=== PATIENT | female | born 2005 | race Caucasian/White ===

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

== ENCOUNTER 2023-07-22 11:27 | Emergency (ER) | payer BC, SELFPAY ==
--- NOTE | ~2023-07-22 | US_ITS ---
EXAMINATION: US right upper quadrant DATE: 07/22/2023 16:41 INDICATION: Abdominal pain TECHNIQUE: Multiple grayscale and Doppler ultrasound images of the abdomen were obtained. COMPARISON: None FINDINGS: The pancreatic head and body are normal in appearance. The pancreatic tail is not visualized. Visual ized abdominal aorta is normal measuring 1.8 cm proximally tapering to 1.4 cm in the mid aorta. The v isualized proximal inferior vena cava is normal. The gallbladder is normal in appearance. There is n o cholelithiasis. The common bile duct measures 2 mm, which is normal. Sonographic Min sign was re ported as negative by the environmental engineering professor. IMPRESSION: 1. Normal right upper quadrant ultrasound. Reviewed, dictated and finalized at location A. OTAPE OPERATOR
[2023-07-22 12:05] VITALS: BP 126/92; PULSE 93; RESP 18; TEMP 36.1; O2SAT 99
[2023-07-22 16:27] VITALS: BP 118/72; PULSE 78; RESP 16; TEMP 36.7; O2SAT 100
[2023-07-22] MEDS: MORPHINE SULFATE (*CRX) 2 MG/ML INJ IV PUSH (16:32)
[2023-07-22] MEDS: ONDANSETRON INJ 4 MG/2 ML VIAL IV PUSH (16:32)
[2023-07-22 16:34] LABS: Basophils Absolute Auto 0.1 K/mm3 (0.0-0.1); Basophils Percent Auto 0.9 % (0.2-1.2); Eosinophils Absolute Auto 0.1 K/mm3 (0-0.3); Hematocrit 44.5 % (37.0-47.0); Hemoglobin 13.6 g/dL (12.0-15.0); Immature Granulocyte Absolute 0.03 K/mm3 (0.00-0.031); Immature Granulocyte Percent A 0.4 % (0-0.5); Lymphocytes Absolute Auto 2.19 K/mm3 (0.9-3.2); Lymphocytes Percent Auto 31.9 % (18.3-44.2); Mean Corpuscular HGB Conc 30.6 g/dl (32-36); Mean Corpuscular Volume 72.1 fl (80-100); Mean Platelet Volume 10.2 fl (7.4-10.4); Monocytes Absolute Auto 0.5 K/mm3 (0.1-0.6); Monocytes Percent Auto 7.9 % (2.6-8.5); Neutrophils Absolute Auto 3.9 K/mm3 (1.3-6.7); Neutrophils Percent Auto 56.9 % (45.5-73.1); Platelet Count Result 212 k/mm3 (150-375); Red Blood Count 6.17 M/mm3 (4.2-5.4); Red Cell Distribution Width 16.8 % (11.5-14.5); White Blood Count 6.9 K/mm3 (4.5-10.0)
[2023-07-22 16:44] LABS: Alanine Aminotransferase 18 U/L (6-35); Albumin Level 4.7 g/dL (3.5-5.1); Alkaline Phosphatase 70 U/L (38-126); Anion Gap 6 mmol/L (8-16); Aspartate Amino Transferase 26 U/L (14-36); Bilirubin,Total 0.9 mg/dL (0.2-1.3); Blood Urea Nitrogen 9 mg/dL (7-17); Calcium 9.8 mg/dL (8.4-10.2); Carbon Dioxide 26 mmol/L (22-30); Chloride 104 mmol/L (98-107); Estimated CRCL calculation 107 ml/min; Estimated Glomerular Filt Rate > 60; Glucose 95 mg/dL (65-110); Lipase 54 U/L (23-300); Sodium 136 mmol/L (137-145)
[2023-07-22 17:30] VITALS: BP 118/70; PULSE 78; RESP 16; TEMP 36.7; O2SAT 99
[2023-07-22 18:15] VITALS: BP 120/68; PULSE 80; RESP 16; TEMP 36.6; O2SAT 100
--- NOTE | 2023-07-22 18:15 | ED.ABDPAIN ---
HPI - Abdominal Pain General Chief Complaint: Abdominal Pain Stated Complaint: abd pain Time Seen by Provider: 07/22/23 15:53 History of Present Illness HPI narrative: Patient is a 18-year-old female who presents ER with abdominal pain. Right upper quadrant. Associated nausea vomiting. She has had some diarrhea. This has been intermittent for last couple of months. It is associated with eating. No fevers or chills or sweats. Related Data Allergies Allergy/AdvReac Type Severity Reaction Status Date / Time No Known Allergies Allergy Verified 12/27/22 15:17 Review of Systems Review of Systems: All systems reviewed & are unremarkable except as noted in HPI and below Constitutional: Constitutional: Reports no additional constitutional complaints ENT: Reports system reviewed and no additional complaints, except as documented Cardiovascular: Cardiovascular: Reports no additional cardiovascular complaints Respiratory: Respiratory: Reports no additional respiratory complaints Gastrointestinal: Gastrointestinal: Reports abdominal pain, Reports diarrhea, Reports nausea and Reports vomiting Genitourinary: Genitourinary: Reports no additional female genitourinary complaints Musculoskeletal: Musculoskeletal: Reports no additional musculoskeletal complaints PMFSH Past Medical History Medical History (Updated 07/22/23 @ 19:05 by Bob Carbajal MD) No pertinent past medical history Surgical History Surgical History (Updated 07/22/23 @ 18:17 by Bob Carbajal MD) No history of previous surgery Family History Family History Grandparent Cancer Social History Social History Smoking status: Never smoker Substance use: current Last use: MONTH AGO--IN JANUARY Gender identity (if verbalized by the patient): Female Spiritual care concerns: No Exam Narrative: GENERAL: Well-appearing, well-nourished, and in no acute distress. HEAD: Normocephalic, atraumatic. ENT: Mucous membranes moist. NECK: Supple. CHEST: Clear to auscultation. No respiratory distress. HEART: Regular rate and rhythm. Normal peripheral pulses. ABDOMEN: Soft, mild ttp RUQ, nondistended. EXTREMITIES: Normal range of motion. No edema. SKIN: Warm, dry, no rash. NEURO: Alert and oriented x3. PSYCH: Normal mood and affect. Course Course Emergency Course: -Course: Epigastric pain with nausea upon arrival. Improved with medication. -Co-morbidities complicating care: obesity -Social determinants of health: none -External Chart Review: none -Hx from independent Sources: patient -Independent interpretation of studies: normal labs and ultrasound of right upper quadrant -Interventions: morphine 4 mg, Zofran 4 mg -Shared decision making / Disposition: discharge home, follow-up with PCP. May require GI follow-up if she has recurrent issues. Vital Signs Vital signs: Vital Signs Temperature 96.9 F L 07/22/23 12:05 Pulse Rate 93 07/22/23 12:05 Respiratory Rate 18 07/22/23 12:05 Blood Pressure 126/92 H 07/22/23 12:05 Pulse Oximetry 99 07/22/23 12:05 Oxygen Delivery Room Air 07/22/23 12:05 Temperature 97.8 F 07/22/23 18:47 Pulse Rate 74 07/22/23 18:47 Respiratory Rate 16 07/22/23 18:47 Blood Pressure 116/74 07/22/23 18:47 Pulse Oximetry 98 07/22/23 18:47 Oxygen Delivery Room Air 07/22/23 12:05 MDM - Abdominal Pain Lab Data 07/22/23 16:28 07/22/23 16:28 Labs: Lab Results 07/22/23 Range/Units 16:28 WBC 6.9 (4.5-10.0) K/mm3 RBC 6.17 H (4.2-5.4) M/mm3 Hgb 13.6 D (12.0-15.0) g/dL Hct 44.5 (37.0-47.0) % MCV 72.1 L (80-100) fl MCH 22.0 L (26-34) pg MCHC 30.6 L (32-36) g/dl RDW 16.8 H (11.5-14.5) % Plt Count 212 (150-375) k/mm3 MPV 10.2 (7.4-10.4) fl Immature Gran % (Auto) 0.4 (0-0.5
[2023-07-22 18:47] VITALS: BP 116/74; PULSE 74; RESP 16; TEMP 36.6; O2SAT 98
== END 2023-07-22 19:10 | disposition home or self-care (01) ==
PROVIDERS: Emergency Provider Emergency Medicine; PCP Family Medicine
DX: R10.13 Epigastric pain (principal)
CPT/HCPCS: 36415; 76705; 80053; 83690; 85025; 96374; 96375; 99284; J2270; J2405

== ENCOUNTER 2024-11-30 01:21 | Emergency (ER) | payer SELFPAY ==
--- NOTE | ~2024-11-30 | XR_ITS ---
Clinical Indication: Epigastric pain PA and lateral views of the chest: Comparison: None Findings: The lungs are clear, without evidence of focal consolidation or pleural effusion. Cardiome diastinal silhouette is within normal limits. Bones and soft tissues are unremarkable. Impression: Normal chest. Reviewed, dictated and finalized at location . Impression: Normal chest.
[2024-11-30 01:22] VITALS: BP 119/77; PULSE 109; RESP 14; TEMP 36.3; O2SAT 100
--- NOTE | 2024-11-30 01:32 | ECG_ITS ---
Test Date: 2024-11-30 01:44:33 Measurements Intervals [place] Rate: 102 P: 48 VA: 159 QRS: 27 QRSD: 90 T: 24 QT: 333 QTc: 434 Interpretive Statements SINUS TACHYCARDIA POSSIBLE LEFT ATRIAL ENLARGEMENT INCOMPLETE RIGHT BUNDLE BRANCH BLOCK DELAYED PRECORDIAL R/S TRANSITION BORDERLINE ECG No previous ECG available for comparison Electronically Signed On 11-30-2024 06:09:51 CDT by Jamar Jon D.O.
[2024-11-30 02:04] LABS: BEDSIDEPREGUCG Negative (Negative)
--- NOTE | 2024-11-30 02:22 | ED_ITS ---
HPI - General Adult General Chief complaint: Chest Pain Stated complaint: epigastric pain Time Seen by Provider: 11/30/24 02:10 History of Present Illness HPI narrative: 19-year-old female presenting to the emergency department for evaluation for nausea vomiting and diarrhea. Patient states this is a chronic issue for her. Patient reports he has a history of IBS but does not follow-up with GI. Patient states that she does smoke marijuana daily and does drink alcohol almost daily. Related Data Allergies Allergy/AdvReac Type Severity Reaction Status Date / Time No Known Allergies Allergy Verified 11/30/24 01:22 Review of Systems 2 Review of Systems: All systems reviewed & are unremarkable except as noted in HPI and below PMFSH Past Medical History Medical History (Updated 11/30/24 @ 03:35 by Manjeet Payan MD) No pertinent past medical history Surgical History Surgical History (Updated 07/22/23 @ 18:17 by Bob Carbajal MD) No history of previous surgery Family History Family History Grandparent Cancer Social History Social History Smoking status: Never smoker Substance use: current Last use: MONTH AGO--IN JANUARY Gender identity (if verbalized by the patient): Female Spiritual care concerns: No Exam 2 Narrative: APPEARANCE: Well appearing, no pain, no distress, well-nourished. HEAD: normocephalic, atraumatic. EYES: PERRLA/EOMI, conjunctivae clear. NOSE: Normal no drainage EARS:TMS clear with good light reflex. THROAT: Pharynx clear, no exudate. NECK: Supple. No adenopathy, no masses. RESPIRATORY: Airway patent, respirations nonlabored. Clear to auscultation bilaterally, no rales, rhonchi, wheezing. CARDIOVASCULAR: Regular rate and rhythm without murmurs rubs or gallops. ABDOMINAL: Epigastric tenderness to palpation MUSCULOSKELETAL: Moves all extremities. Strength/ROM intact, No edema, No calf tenderness. NEURO: Alert. Cranial nerves II through XII intact. Good gait. Good coordination SKIN: Warm, dry. Normal Color Course Vital Signs Vital signs: Vital Signs Temperature 97.4 F L 11/30/24 01:22 Pulse Rate 109 H 11/30/24 01:22 Respiratory Rate 14 11/30/24 01:22 Blood Pressure 119/77 11/30/24 01:22 Pulse Oximetry 100 11/30/24 01:22 Oxygen Delivery Room Air 11/30/24 01:22 Temperature 97.4 F L 11/30/24 01:22 Pulse Rate 75 11/30/24 04:01 Respiratory Rate 20 11/30/24 04:01 Blood Pressure 108/79 11/30/24 04:01 Pulse Oximetry 97 11/30/24 04:01 Oxygen Delivery Room Air 11/30/24 01:22 Medical Decision Making MDM Narrative Medical decision making narrative: 19-year-old female presents emergency department for evaluation for cyclic nausea and vomiting. Patient does admit to daily THC use. Patient describes nausea vomiting and diarrhea that is daily. Patient has not had follow-up with GI. Patient's symptoms were resolved with the Protonix IV, IV famotidine and p.o. GI cocktail. Patient is currently afebrile with no leukocytosis hemoglobin 11.3. Patient has no acute abnormalities on her CMP other than a mildly elevated AST of 43 and a low alk-phos, patient has a normal lipase. Patient's troponin was not elevated. No concern for ACS and patient's symptoms are consistent with gastritis. Feel the underlying issue for gastritis may be alcohol use and cannabinoid hyperemesis syndrome. Patient was educated on refraining from both these and starting on omeprazole. Patient will also be provided follow-up with GI. All questions concerns were addressed patient was comfortable plan for discharge and close follow-up. Differential Diagnosis Differential Diagnosis: Colitis, diverticulitis, gastritis, esophagitis, could have a hyperemesis syndrome, pancreatitis Vital Signs Vital Signs: Vital Signs Temperature 97.4 F L 11/30/24 01:22 Pulse Rate 109 H 11/30/24 01:22 Respiratory Rate 14 11/30/24 01:22 Blood Pressure 119/77 11/30/24 01:22 Pulse Oximetry 100 11/30/24 01:22 Oxygen Delivery Room Air 11/30/24 01:22 Temperature 97.4 F L 11/30/24 01:22 Pulse Rate 75 11/30/24 04:01 Respiratory Rate 20 11/30/24 04:01 Blood Pressure 108/79 11/30/24 04:01 Pulse Oximetry 97 11/30/24 04:01 Oxygen Delivery Room Air 11/30/24 01:22 Lab Data Lab results reviewed: Yes I reviewed the patient's lab results. 11/30/24 02:49 11/30/24 02:02 Labs: Lab Results 11/30/24 11/30/24 Range/Units 02:02 02:49 WBC 6.2 (4.5-10.0) K/mm3 RBC 5.05 (4.2-5.4) M/mm3 Hgb 11.3 L (12.0-15.0) g/dL Hct 35.7 L (37.0-47.0) % MCV 70.7 L (80-100) fl MCH 22.4 L (26-34) pg MCHC 31.7 L (32-36) g/dl RDW 14.7 H (11.5-14.5) % Plt Count 221 (150-375) k/mm3 MPV 11.0 H (7.4-10.4) fl Immature Gran % (Auto) 0.5 (0-0.5) % Neut % (Auto) 42.4 L (45.5-73.1) % Lymph % (Auto) 45.4 H (18.3-44.2) % [place] % (Auto) 8.7 H (2.6-8.5) % Eos % (Auto) 2.2 (0-4.4) % Baso % (Auto) 0.8 (0.2-1.2) % Lymph # (Auto) 2.83 (0.9-3.2) K/mm3 [place] # (Auto) 0.5 (0.1-0.6) K/mm3 Eos # (Auto) 0.1 (0-0.3) K/mm3 Baso # (Auto) 0.1 (0.0-0.1) K/mm3 Abs Immat Gran (auto) 0.03 (0.00-0.031) K/mm3 Absolute Neuts (auto) 2.7 (1.3-6.7) K/mm3 Absolute Nucleated RBC 0.000 (0.0-0.012) K/mm3 Band Neutrophils % 0 (0-6) % Nucleated RBC % 0.0 (0.0-0.2) % Platelet Estimate Adequate (Adequate) Hypochromasia 1+ Anisocytosis 1+ Schistocytes None seen PT Cancelled INR Cancelled APTT Cancelled Sodium 140 (137-145) mmol/L Potassium 4.3 (3.4-5.0) mmol/L Chloride 106 (98-107) mmol/L Carbon Dioxide 23 (22-30) mmol/L Anion Gap 11 (4-12) mmol/L BUN 9 (7-17) mg/dL Creatinine 0.84 (0.7-1.0) mg/dL Estim Creat Clear Calc 90 ml/min Estimated GFR > 60 (59 - ) Glucose 101 (65-110) mg/dL Calcium 9.1 (8.4-10.2) mg/dL Total Bilirubin 0.6 (0.2-1.3) mg/dL AST 43 H (14-36) U/L ALT 25 (6-35) U/L Alkaline Phosphatase 35 L (38-126) U/L Troponin I < 0.012 (0.000-0.034) ng/mL Total Protein 7.9 (6.3-8.2) g/dL Albumin 4.4 (3.5-5.1) g/dL Lipase 106 (23-300) U/L POC Urine HCG, Qual Negative (Negative) Imaging Data Radiologist's impression: Impressions Chest X-Ray 11/30/24 05:26 Impression: Normal chest. Discharge Plan Discharge Clinical Impression: Cannabinoid hyperemesis syndrome, Gastritis Patient Disposition: Home Condition: Stable Instructions: Antibiotic Form, Diet for Stomach Ulcers and Gastritis (ED) Additional Instructions: Avoid alcohol, avoid NSAIDs and follow a bland diet. Take omeprazole as directed for the next 14 days. Have close follow-up with GI. I also strongly recommend that you continue to educate yourself on cannabinoid hyperemesis syndrome and refrain from THC use for at least 1 month to see if this helps with your symptoms. Patient Language: Liberian Prescriptions: New omeprazole 20 mg capsule,delayed release(DR/EC) 20 mg PO DAILY 14 Days Qty: 14 0RF ondansetron 4 mg tablet,disintegrating 4 mg PO Q8H PRN (Reason: nausea and vomiting) Qty: 14 0RF No Action ondansetron 4 mg tablet,disintegrating 4 mg PO Q6H PRN (Reason: nausea and vomiting) Qty: 10 0RF Follow-up/Referrals: PHYSICIAN,SPECIAL MACHINE OPERATOR [Primary Care Provider] - Julio Reynoso MD [Physician] -
[2024-11-30 02:25] LABS: Alanine Aminotransferase 25 U/L (6-35); Albumin Level 4.4 g/dL (3.5-5.1); Alkaline Phosphatase 35 U/L (38-126); Anion Gap 11 mmol/L (4-12); Aspartate Amino Transferase 43 U/L (14-36); Bilirubin,Total 0.6 mg/dL (0.2-1.3); Blood Urea Nitrogen 9 mg/dL (7-17); Calcium 9.1 mg/dL (8.4-10.2); Carbon Dioxide 23 mmol/L (22-30); Chloride 106 mmol/L (98-107); Estimated CRCL calculation 90 ml/min; Estimated Glomerular Filt Rate > 60; Glucose 101 mg/dL (65-110); Lipase 106 U/L (23-300); Potassium 4.3 mmol/L (3.4-5.0); Sodium 140 mmol/L (137-145); Total Protein 7.9 g/dL (6.3-8.2)
[2024-11-30 02:30] LABS: Troponin I < 0.012 ng/mL (0.000-0.034)
[2024-11-30] MEDS: BELLADONNA ALK/PHENOB ELIX 10 ML, MAG HYDROX/ALUMINUM HYD/SIMETH 30 ML, LIDOCAINE 2% VI... PO (02:51)
[2024-11-30] MEDS: PANTOPRAZOLE SODIUM IV 40 MG VIAL IV PUSH (02:53)
[2024-11-30] MEDS: FAMOTIDINE 20 MG/2 ML VIAL IV PUSH (02:54)
[2024-11-30] MEDS: LACTATED RINGERS 1,000 ML 999 ML IV CONT (02:58)
[2024-11-30 03:05] LABS: Basophils Absolute Auto 0.1 K/mm3 (0.0-0.1); Basophils Percent Auto 0.8 % (0.2-1.2); Eosinophils Absolute Auto 0.1 K/mm3 (0-0.3); Eosinophils Percent Auto 2.2 % (0-4.4); Hematocrit 35.7 % (37.0-47.0); Hemoglobin 11.3 g/dL (12.0-15.0); Immature Granulocyte Absolute 0.03 K/mm3 (0.00-0.031); Immature Granulocyte Percent A 0.5 % (0-0.5); Lymphocytes Absolute Auto 2.83 K/mm3 (0.9-3.2); Lymphocytes Percent Auto 45.4 % (18.3-44.2); Mean Corpuscular HGB Conc 31.7 g/dl (32-36); Mean Corpuscular Hemoglobin 22.4 pg (26-34); Mean Corpuscular Volume 70.7 fl (80-100); Monocytes Absolute Auto 0.5 K/mm3 (0.1-0.6); Monocytes Percent Auto 8.7 % (2.6-8.5); Neutrophils Absolute Auto 2.7 K/mm3 (1.3-6.7); Neutrophils Percent Auto 42.4 % (45.5-73.1); Platelet Count Result 221 k/mm3 (150-375); Red Blood Count 5.05 M/mm3 (4.2-5.4); Red Cell Distribution Width 14.7 % (11.5-14.5); White Blood Count 6.2 K/mm3 (4.5-10.0)
[2024-11-30] MEDS: HALOPERIDOL LACTATE 5 MG/ML VIAL IV PUSH (03:18)
[2024-11-30 03:34] LABS: Band Neutrophils Percent 0 % (0-6); Platelet Estimate Adequate (Adequate)
[2024-11-30 03:35] LABS: Anisocytosis 1+; Hypochromasia 1+; Schistocytes None Seen
[2024-11-30 04:01] VITALS: BP 108/79; PULSE 75; RESP 20; O2SAT 97
== END 2024-11-30 04:01 | disposition home or self-care (01) ==
PROVIDERS: Emergency Provider Emergency Medicine
DX: R11.2 Nausea with vomiting, unspecified (principal); F12.90 Cannabis use, unspecified, uncomplicated; I45.10 Unspecified right bundle-branch block; R94.31 Abnormal electrocardiogram [ECG] [EKG]; R00.0 Tachycardia, unspecified
CPT/HCPCS: 36415; 71046; 80053; 81025; 83690; 84484; 85025; 93005; 96361; 96374; 96375; 99284; A9270; J1630; J2470; J7120

== ENCOUNTER 2024-12-18 18:21 | Emergency (ER) | payer SELFPAY ==
--- NOTE | 2024-12-18 18:23 | ED_ITS ---
HPI - Skin/Abscess/Foreign Bdy General Chief complaint: Skin/Abscess/Foreign Body Stated complaint: Bug Bite Left Thigh Time Seen by Provider: 12/18/24 18:29 Source: patient, RN notes reviewed and old records reviewed Mode of arrival: ambulatory Limitations: no limitations History of Present Illness HPI narrative: 19-year-old female presents to the [facility] with concerns of redness, discomfort to the left lateral upper thigh. States approximately 1 cm was either bit or stung by something. Apply hydrocortisone cream 1 time. Related Data Allergies Allergy/AdvReac Type Severity Reaction Status Date / Time No Known Allergies Allergy Verified 12/18/24 18:24 Review of Systems 2 Review of Systems: All systems reviewed & are unremarkable except as noted in HPI and below Constitutional: Constitutional: Reports no additional constitutional complaints ENT: Reports system reviewed and no additional complaints, except as documented Cardiovascular: Cardiovascular: Reports no additional cardiovascular complaints, Denies chest pain and Denies dyspnea Respiratory: Respiratory: Reports no additional respiratory complaints, Denies chest congestion, Denies cough and Denies dyspnea Musculoskeletal: Musculoskeletal: Reports no additional musculoskeletal complaints Integumentary/Breasts: Skin/Breast: Reports as per HPI PMFSH Past Medical History Medical History No pertinent past medical history Surgical History Surgical History No history of previous surgery Family History Family History Grandparent Cancer Social History Social History Smoking status: Never smoker Substance use: current Last use: MONTH AGO--IN JANUARY Gender identity (if verbalized by the patient): Female Spiritual care concerns: No Comments At the time of my signature, I reviewed and agree with the nursing past medical, surgical, social, and family history. There is no relevant family history pertinent to the patient complaint. Exam 2 Const: General: cooperative, healthy appearing, comfortable, no acute distress, well developed, alert and well nourished Nutritional Appearance: w ell nourished Orientation/consciousness: patient oriented x3 Limitations: no limitations HENMT: Head: normal to inspection Mouth: Yes Normal oral and palatal mucosa present, Yes lip normal, Yes tongue normal and Yes moist mucous membranes Eyes: General: appearance normal, both eyes and all related structures A lignment and Position: alignment normal Neck: Neck: normal visual inspection, full ROM, no lymphadenopathy and no meningeal signs Chest: Chest palpation & inspection: normal inspection of the chest Resp: Effort & Inspection: normal respiratory effort and able to speak in complete sentences Cardio: Rate: regular rate Skin: General skin exam: normal color and no rashes or lesions noted Full body images: 1. 7 x 7 cm pain, raised area. Neuro: General: patient oriented x3, gait normal, moves all extremities and no meningeal signs Cognition (Neuro): normal cognition Speech: normal speech Gait exam (Neuro): Normal gait present Extrem: General: normal to inspection, full ROM, capillary refill normal and normal gait Left lower extremity: full ROM and no joint enlargement Psych: Appearance: grossly normal and well kempt Mental Status: mental status grossly normal Speech and movement: Normal speech and movement present and Clear speech present Affect: normal affect Attitude: cooperative Course Course Level of Care: Express Care Visit Vital Signs Vital signs: Vital Signs Temperature 97.5 F L 12/18/24 18:28 Pulse Rate 98 12/18/24 18:28 Respiratory Rate 98 H 12/18/24 18:28 Blood Pressure 126/72 12/18/24 18:28 Pulse Oximetry 98 12/18/24 18:28 Oxygen Delivery Room Air 12/18/24 18:28 Temperature 97.5 F L 12/18/24 18:28 Pulse Rate 98 12/18/24 18:28 Respiratory Rate 98 H 12/18/24 18:28 Blood Pressure 126/72 12/18/24 18:28 Pulse Oximetry 98 12/18/24 18:28 Oxygen Delivery Room Air 12/18/24 18:28 Reviewed MDM - Skin/Abscess/Foreign Bdy MDM Narrative Medical decision making narrative: Patient sitting in exam room. Patient is nontoxic, vitals stable. Patient presents with a circular pink, raised area after being bit by an insect. Patient with most likely a localized reaction to the insect bite. Patient appropriate for outpatient treatment with [id number] products and prescribe steroid cream Discharge instructions reviewed with patient, as well as provided in writing per nursing staff. The instructions also include specific and strict return/GO TO THE ER as well as f/u information. All questions have been answered, and the patient deny any further questions with discharge and discharge plan. Some parts of this dictation were generated by voice recognition software and may contain typographical and/or grammatical inaccuracies. Differential Diagnosis Differential diagnosis: Likely abscess of skin or subcutaneous tissue, urticaria, cellulitis, eczema, insect bites and contact dermatitis Critical Care Time Critical Care Time Critical Care Time: No Discharge Plan Discharge Clinical Impression: Insect bite of left thigh with local reaction Patient Disposition: Home Condition: Stable Instructions: Insect Bite or Sting (ED) Additional Instructions: The most important part of your care is follow up with Primary care provider. Take Benadryl 25mg every 8 hours for itching Take Zyrtec every day Take Pepcid 20mg daily for 7 days Applied steroid cream 3 times a day starting today. Avoid hot showers, Take cool showers. Hot showers will make rashes worse Apply cool compresses every 2-3 hours for 15 minutes Go to the ER for new or worsening symptoms such as shortness of breath. Patient Language: Indian Prescriptions: New triamcinolone acetonide 0.1 % cream 1 applic topical TID Qty: 30 0RF No Action Nexplanon 68 mg implant 1 implant subdermal ONCE Qty: 1 0RF Follow-up/Referrals: UNKNOWN,DOCTOR [Non-Staff] - Time of Disposition: 18:35
[2024-12-18 18:28] VITALS: BP 126/72; PULSE 98; RESP 98; TEMP 36.4; O2SAT 98
== END 2024-12-18 18:38 | disposition home or self-care (01) ==
PROVIDERS: Emergency Provider Nurse Practitioner
DX: S70.362A Insect bite (nonvenomous), left thigh, initial encounter (principal); W57.XXXA Bitten or stung by nonvenomous insect and other nonvenomous arthropods, initial encounter
CPT/HCPCS: 99213; G0463

== ENCOUNTER 2024-12-24 11:02 | Emergency (ER) | payer SELFPAY ==
--- NOTE | ~2024-12-24 | XR_ITS ---
EXAM/PROCEDURE: XR abdomen/kub 1V - 12/24/2024 11:35 CDT HISTORY: 19 years old Female with generalized abdomen pain COMPARISON: None available. TECHNIQUE: AP view(s) of the abdomen. FINDINGS: The bowel gas pattern is normal. There is no evidence for obstruction. No free intraperitoneal air is identified on this supine radiograph. The visualized soft tissue shadows are unremarkable. No gross bony abnormalities are seen. Visualized portions of lung bases are clear. IMPRESSION: No acute process. Reviewed, dictated and finalized at location A. IMPRESSION: No acute process.
--- NOTE | 2024-12-24 11:04 | ED_ITS ---
HPI - Abdominal Pain General Chief Complaint: Abdominal Pain Stated Complaint: abdomen pain Time Seen by Provider: 12/24/24 11:03 Source: patient Mode of arrival: ambulatory Limitations: no limitations History of Present Illness HPI narrative: Glory is a 19-year-old female patient presenting to the clinic today with complaints of mid and lower abdominal pain x1 day. She reports symptoms started yesterday-pain was 10/10 at that time. States pain is sharp, stabbing, and constant. Rates her pain currently a 4/10. Has not taken any medications for her symptoms. Last bowel movement was today and normal for the patient. Menstrual period was November 30 to December 04. Recently has had her Nexplanon taken out. Denies any vaginal discharge, bleeding, or odors. No concern for STIs. Denies any urinary symptoms. No nausea, vomiting, or diarrhea. No blood in her urine or stool. History of stomach ulcers and IBS. Pain is not worse after eating. Related Data Allergies Allergy/AdvReac Type Severity Reaction Status Date / Time No Known Allergies Allergy Verified 12/24/24 11:11 Review of Systems 2 Review of Systems: Pertinent positives per HPI. Patient denies any fever, chills, rash, headache, visual changes, dizziness, cough, runny nose, sore throat, shortness of breath, chest pain, palpitations, nausea, vomiting, diarrhea, constipation, or any urinary issues. PMFSH Past Medical History Medical History No pertinent past medical history Surgical History Surgical History No history of previous surgery Family History Family History Grandparent Cancer Social History Social History Smoking status: Never smoker Substance use: current Last use: MONTH AGO--IN JANUARY Gender identity (if verbalized by the patient): Female Spiritual care concerns: No Comments At the time of my signature, I reviewed and agree with the nursing past medical, surgical, social, and family history. There is no relevant family history pertinent to the patient complaint. Exam Narrative: General: Well-developed, well nourished, in no apparent distress. Head: Normocephalic, atraumatic. Cardio: Regular rate and rhythm, s1 and s2 normal, no murmur appreciated. Resp: Clear to auscultation bilaterally, no rhonchi, rales, wheezing or rubs. Abdomen: Soft, pliable, bowel sounds present in all quadrants, generalized tender to palpation, no organomegly, no CVAT tenderness. : Deferred Course Course Emergency Course: Portions of this record may have been created with voice recognition software. Level of Care: Express Care Visit Vital Signs Vital signs: Vital Signs Temperature 36.6 C 12/24/24 11:08 Pulse Rate 93 12/24/24 11:08 Respiratory Rate 20 12/24/24 11:08 Blood Pressure 136/72 12/24/24 11:08 Pulse Oximetry 100 12/24/24 11:08 Oxygen Delivery Room Air 12/24/24 11:08 Temperature 36.6 C 12/24/24 11:08 Pulse Rate 93 12/24/24 11:08 Respiratory Rate 20 12/24/24 11:08 Blood Pressure 136/72 12/24/24 11:08 Pulse Oximetry 100 12/24/24 11:08 Oxygen Delivery Room Air 12/24/24 11:08 Vital signs reviewed MDM - Abdominal Pain MDM Narrative Medical decision making narrative: At the time of visit patient is resting comfortably on the exam table. Patient appears to be nontoxic. Complaints of mid and lower abdominal pain x1 day. Pain is sharp, stabbing, and constant. Rates her pain currently a 4/10. Has not taken any medication to treat symptoms. History of IBS/stomach ulcer. No na usea, vomiting, or diarrhea. No fevers. Last BM today and normal. Generalized abdomen pain to palpation. No pain over suprapubic bladder or adnexa. UA dip, bedside preg test, and KUB ordered. Labs: Urine dip negative for any sign of infection, protein, or nitrate. Does show a trace of blood, bedside test negative. Diagnostics: Kub x-ray ordered and was negative for any acute abdominal process. Plan: Patient is having mid to lower abdominal pain-rates pain 4/10 currently. She looks comfortable and is in no acute distress. Has not taken any medications for her pain. No findings for abdominal pain in the clinic today. History of IBS-possible flare. Offer to send patient to the emergency room for further evaluation and she declined at this time like to go home and trial some [id number] medicines. Will go to the emergency room if symptoms worsen. Supportive measures were discussed with the patient and they voiced understanding discharge instructions and agrees to treatment plan. Return precautions reviewed She reports symptoms started yesterday. Differential Diagnosis Differential diagnosis: Likely abdominal pain, acute appendicitis, calculus of kidney, constipation, diverticulitis, endometriosis, gastroenteritis, pancreatitis, small bowel obstruction and other (IBS) Lab Data Labs: Lab Results 12/24/24 Range/Units 11:24 POC Urine Color Yellow POC Urine Clarity Clear POC Urine pH 7.0 POC Ur Specif [place] 1.005 POC Urine Protein Negative (Negative) POC Ur Glucose (UA) Negative (Negative) POC Urine Ketones Negative (Negative) POC Urine Blood Trace (Negative) POC Urine Nitrite Negative (Negative) POC Urine Bilirubin Negative (Negative) POC Urine Urobilinogen 0.2 POC U Leukocyte Esteras Negative (Negative) POC Urine HCG, Qual Negative (Negative) Imaging Data Radiologist's impression: ITS Impressions Abdomen X-Ray 12/24/24 12:03 IMPRESSION: No acute process. Discharge Plan Discharge Clinical Impression: Abdominal pain Qualifiers: Abdominal location: generalized Qualified Code(s): R10.84 - Generalized abdominal pain Patient Disposition: Home Condition: Stable Instructions: Antibiotic Form, Abdominal Pain (ED) Additional Instructions: X-ray of the abdomen is negative for any acute abdominal process. No sign of obstruction or constipation. Urinalysis is negative for any sign of infection, nitrates, or protein. Bedside test was negative Increase fluids and stay well hydrated Tylenol/motrin for pain/fever BRAT diet for diarrhea Clear liquids x 24 hours then advance as tolerated for nausea/vomiting Go to the ED if you develop a worsening in your condition- high fever not contr olled by Tylenol or Motrin, nausea/vomiting, dehydration, weakness, lethargy, shortness of breath, chest pain, or worsening of abdominal pain. Follow up with your PCP in 3-5 days if symptoms persist. Patient Language: Telugu Prescriptions: No Action triamcinolone acetonide 0.1 % cream 1 applic topical TID Qty: 30 0RF Nexplanon 68 mg implant 1 implant subdermal ONCE Qty: 1 0RF Follow-up/Referrals: PHYSICIAN,BODY BUILDER APPRENTICE [Primary Care Provider] - Time of Disposition: 12:17 Quality NIHSS Nursing Documentation ED NIHSS nursing documentation: reviewed/agree
[2024-12-24 11:08] VITALS: BP 136/72; PULSE 93; RESP 20; TEMP 36.6; O2SAT 100
[2024-12-24 11:39] LABS: BEDSIDEPREGUCG Negative (Negative); EDUAAPPEAR Clear; EDUABILI Negative (Negative); EDUABLOOD Trace (Negative); EDUACOLOR1 Yellow; EDUAGLUCOSE Negative (Negative); EDUAKETONE Negative (Negative); EDUALEUKO Negative (Negative); EDUANITRATE Negative (Negative); EDUAPH 7.0; EDUAPROTEIN Negative (Negative); EDUASPGRAVITY 1.005; EDUAUROBILI 0.2
== END 2024-12-24 12:22 | disposition home or self-care (01) ==
PROVIDERS: Emergency Provider Nurse Practitioner Family
DX: R10.84 Generalized abdominal pain (principal)
CPT/HCPCS: 74018; 81003; 81025; 99213; G0463

== ENCOUNTER 2025-02-18 18:45 | Emergency (ER) | payer SELFPAY ==
--- NOTE | ~2025-02-18 | XR_ITS ---
EXAMINATION: XR chest 2V DATE: 02/18/2025 19:04 INDICATION: Chest pain. Shortness of breath. TECHNIQUE: Frontal and lateral views of the chest were obtained. COMPARISON: Chest 2 views 11/30/2024 FINDINGS: There is no pneumonia, pleural effusion, or pneumothorax. The heart size is normal. IMPRESSION: 1. No acute cardiopulmonary disease. Reviewed, dictated and finalized at location K.
--- NOTE | 2025-02-18 18:51 | ECG_ITS ---
Test Date: 2025-02-18 18:53:36 Measurements Intervals [place] Rate: 98 P: 57 MI: 151 QRS: 45 QRSD: 87 T: 39 QT: 326 QTc: 417 Interpretive Statements SINUS RHYTHM POSSIBLE RIGHT VENTRICULAR CONDUCTION DELAY [RSR (QR) IN V1/V2] ABNORMAL ECG Compared to ECG 11/30/2024 01:44:33 Sinus tachycardia no longer present Incomplete right bundle-branch block no longer present Electronically Signed On 02-19-2025 08:08:09 CDT by Dread Barreto M.D.
[2025-02-18 18:53] VITALS: BP 114/78; PULSE 104; RESP 18; TEMP 36.4; O2SAT 100
--- OUTSIDE RECORDS SUMMARY | 2025-02-18 19:23 | XMS_ITS | Clinical Summary ---
Author Organization [facility] Address [address] [place], [place] [id number] Care Team Providers Care Track Announcer Name Role Phone None, Provider MD Primary Care Provider Unavaila ble Allergies No known active allergies Medications No known medications Social History Tobacco Use Types Packs/Day Years Used Date Smoking Tobacco: Never Assessed Comments Unknown Sex and Gender Information Value Date Recorded Sex Assigned at Not on file Legal Sex Female 10:39 PM CDT Gender Identity Not on file Sexual Orientation Not on file Last Filed Vital Signs Vital Sign Reading Time Taken Comments Blood Pressure 125/90 11/28/2023 10:48 PM CDT Pulse 92 11/28/2023 10:48 PM CDT Temperature 36.9 C (98.5 F) 11/28/2023 10:48 PM CDT Respiratory Rate 20 11/28/2023 10:48 PM CDT Oxygen Saturation 99% 11/28/2023 10:48 PM CDT Inhaled Oxygen Concentration - - Weight - - Height - - Body Mass Index - - Plan of Treatment Health Maintenance Due Date Last Done Comments Cervical Cancer Screening Pap Smear (Age 21 to 29) Every 3 Years 2003 Cervical Cancer Screening 2003 Annual Physical 2006 Meningococcal B Vaccine (1 of 2 - Standard) 2019 Hepatitis C 2021 DTaP, Tdap and Td Vaccines (7 - Td or Tdap) 11/21/2024 11/21/2014, 01/21/2009, 08/03/2004, Additional history exists COVID-19 Vaccine ( season) 2025 Hepatitis B Vaccines Completed 2003, 2003, 2003, Additional history exists Pneumococcal Vaccine: Pediatrics (0 to 5 Years) and At-Risk Patients (6 to 49 Years) Completed 12/25/2009, 05/04/2004, 2003, Additional history exists HPV Vaccines Completed 10/09/2015, 11/21/2014 Meningococcal Vaccine Aged Out 07/12/2016, 010 No longer eligible based on patient's age to complete this topic RSV Immunizations Under 20 Months Aged Out No longer eligible based on patient's age to complete this topic Insurance [employer] [id number] Care Teams Track Announcer Relationship Specialty Start Date End Date None, Provider, MD PCP - General UNKNOWN PHYSICIAN SPECIALTY 11/28/23
--- OUTSIDE RECORDS SUMMARY | 2025-02-18 19:23 | XMS_ITS | Clinical Summary ---
Author Organization [facility] [employer] Address [address] [place] [address] Care Team Providers Care Respiratory Care Assistant Name Role Phone Unavailable Primary Care Provider Unavailabl e Source Comments [facility],non-owned Affiliates and Associated Physician Practices is amultiple site organization consisting of ambulatory clinics and hospital sitesin [place], [place], [place] and [place]. This disclosure is being madepursuant to the Care Everywhere program and may not contain all information available regarding this patient. Last updated 18.[facility] [employer] Allergies No known active allergies Medications * Be aware that medications may not be up to date on this document. Alwaysverify current medications with the patient. vitamin B2 (RIBOFLAVIN) 100 MG tablet Take by mouth once daily Active magnesium oxide (MAG-OX) 400 MG tablet Take 400 mg by mouth once daily Active ondansetron (ZOFRAN) 4 MG tablet Take 4 mg by mouth every 6 hours as needed for Nausea/Vomitin g Active doxylamine (UNISOM) 25 MG tablet Take 25 mg by mouth nightly as needed for Insomnia Active Vit-Fe Fumarate-FA ( VITAMIN) 28-0.8 MG tabletIndicatio ns: Take 1 tablet by mouth once daily Reasons: Active Active Problems Problem Noted Date Diagnosed Date SGA (small for gestational age) 10/27/2020 Overview (12/03/2020): Initial dating ultrasound at 13 weeks used biometries instead of CRL for EGA. After request from Dr Rader then a CRL measurement was provided and a revised report was created. US based JOSUE from revised 1TM US and the 18 wk US were significantly discordant--patient history suggests against early insult causing severe FGR. Assessment & Plan (12/03/2020 4:38 PM CDT): History and exam clinically unremarkable. Glory and boyfriend both have small frames. No anomalies identified to date. RECOMMENDATIONS: 1. Recommend using the 18 wk US to date this 2. Reevaluate umbilical Doppler in 1 week: IF normal, then today's results is likely a false positive; IF ABNORMAL then send TORCH IgM and NIPT and start weekly ultrasound surveillance 1. Glory is agreeable to this plan 3. Stop marijuana use 4. Recommend dietary education to help Glory get calories without large meals-OB to refer 1. May benefit from Ensure Social History Tobacco Use Types Packs/Day Years Used Date Smoking Tobacco: Never Smokeless Tobacco: Never Alcohol Use Standard Drinks/Week Comments Not Currently 0 (1 standard drink = 0.6 oz pur e alcohol) Comments No Sex and Gender Information Value Date Recorded Sex Assigned at Not on file Legal Sex Female 1:36 PM CDT Gender Identity Not on file Sexual Orientation Not on file Last Filed Vital Signs Vital Sign Reading Time Taken Comments Blood Pressure 112/64 02/24/2021 1:33 PM CDT Pulse 101 02/24/2021 1:33 PM CDT Temperature - - Respiratory Rate - - Oxygen Saturation - - Inhaled Oxygen Concentration - - Weight 71.8 kg (158 lb 6.4 oz) 12/03/2020 3:21 P M CDT Height 167.6 cm (5' 6) 12/03/2020 3:21 PM CDT Body Mass Index 25.57 12/03/2020 3:21 PM CDT Plan of Treatment Health Maintenance Due Date Last Done Comments HIV SCREENING 2018 HPV VACCINE (1 - 3-dose series) 2018 CHLAMYDIA/GONORRHEA SCREENING 2019 MENINGOCOCCAL (Group B) VACC INE SHARED DECISION-MAKING (1 of 2 - Standard) 2019 HEPATITIS C SCREENING 04/24/2021 DTAP/TDAP/TD VACCINES (1 - Tdap) 2022 HEPATITIS B VACCINE (1 of 3 - 19+ 3-dose series) 2022 DEPRESSION SCREENING 06/06/2024 COVID-19 VACCINE (1 - 2023-2 5 season) 2025 INFLUENZA VACCINE (#1) 2025 07/12/2016 ZOSTER VACCINE (1 of 2) 2053 HIB VACCINE Aged Out No longer eligi ble based on patient's age to complete this topic MENINGOCOCCAL GROUPS A/C/Y/W VACCINE Aged Out No longer eligible b ased on patient's age to complete this topic PNEUMOCOCCAL VACCINE Aged Out No long er eligible based on patient's age to complete this topic Insurance [facility] MEDICAID
--- NOTE | 2025-02-18 19:32 | ED.CHESTPAIN ---
HPI - Chest Pain General Chief Complaint: Chest Pain Stated Complaint: Chest pain Time Seen by Provider: 02/18/25 19:24 Source: patient Mode of arrival: ambulatory Limitations: no limitations History of Present Illness HPI narrative: This is a 19-year-old female with no significant past medical history presents the ED for chest pain. Patient states that about 2 hours ago, she had onset of left-sided chest pain that radiated to her left shoulder. 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 She is also head upper respiratory symptoms for the past few days including rhinorrhea, cough productive of white sputum. Denies fevers, chills, nausea vomiting, diarrhea constipation, abdominal pain, shortness of breath. There have been multiple sick contacts with similar symptoms at home. Related Data Allergies Allergy/AdvReac Type Severity Reaction Status Date / Time No Known Allergies Allergy Verified 12/24/24 11:11 Review of Systems Review of Systems: Gen.: Denies fevers or chills Eyes: Denies eye pain or visual change ENT: As per HPI Respiratory: As per HPI CV: As per HPI GI: Denies abdominal pain nausea, emesis or diarrhea denies burning, urgency, frequency or hematuria Musculoskeletal: Denies back pain or muscle pain Neuro: Denies numbness, tingling, weakness or focal weakness Skin: Denies rash Except as documented, all other systems reviewed and negative [facility] Past Medical History Medical History No pertinent past medical history Surgical History Surgical History No history of previous surgery Family History Family History Grandparent Cancer Social History Social History Smoking status: Never smoker Substance use: current Last use: MONTH AGO--IN JANUARY Gender identity (if verbalized by the patient): Female Spiritual care concerns: No Exam Narrative: APPEARANCE: No acute distress, nontoxic, resting in bed EYES: EOMI HEENT: Normocephalic, atraumatic, OMM RESPIRATORY: No respiratory distress Clear to auscultation bilaterally with no rhonchi wheezing or rales. CARDIOVASCULAR: Regular rate and rhythm without murmurs rubs or gallops. ABDOMINAL: Soft, nontender, nondistended, no rebound or guarding MUSCULOSKELETAl: Moves all extremities. No clubbing, cyanosis or edema. NEURO: Awake and alert. Following commands, speech normal, no focal deficits SKIN:: Warm, dry. No rashes lesions or abrasions PSYCHIATRIC: Normal affect/mood, Course Vital Signs Vital signs: Vital Signs Temperature 97.6 F 02/18/25 18:53 Pulse Rate 104 H 02/18/25 18:53 Respiratory Rate 18 02/18/25 18:53 Blood Pressure 114/78 02/18/25 18:53 Pulse Oximetry 100 02/18/25 18:53 Oxygen Delivery Room Air 02/18/25 18:53 Temperature 97.6 F 02/18/25 18:53 Pulse Rate 104 H 02/18/25 18:53 Respiratory Rate 18 02/18/25 18:53 Blood Pressure 114/78 02/18/25 18:53 Pulse Oximetry 100 02/18/25 18:53 Oxygen Delivery Room Air 02/18/25 18:53 MDM - Chest Pain MDM Narrative Medical decision making narrative: 19-year-old female who presents to the ED for chest pain. On initial evaluation patient was in no acute distress, afebrile, hemodynamically stable. Patient's EKGs and labs are without significant high risk changes. Cardiac risk factors reviewed. Patient is felt likely low risk for ACS and reasonable for further risk stratification testing as an outpatient. Pain was not sudden or maximal in onset without tearing or ripping quality. No other signs of symptoms suggest aortic dissection. A low-risk Wells criteria is noted, PE is felt to be unlikely. No pneumonia seen on evaluation today. Patient is felt to be a reasonable candidate for continued evaluation as an outpatient. Patient educated on Tylenol and ibuprofen use. She is advised follow-up with her PCP in the next week for re-evaluation. Patient was agreeable to this plan. Given strict return precautions. Differential Diagnosis Differential diagnosis: Likely atypical chest pain, costochondritis, chest pain and other (viral syndrome, pleurisy) Medical Records Data Attestation: I reviewed the patient's medical records. Lab Data Attestation: I reviewed the patient's lab results. 02/18/25 19:43 02/18/25 19:43 Labs: Lab Results 02/18/25 Range/Units 19:43 WBC 5.4 (4.5-10.0) K/mm3 RBC 5.34 (4.2-5.4) M/mm3 Hgb 12.0 (12.0-15.0) g/dL Hct 38.2 (37.0-47.0) % MCV 71.5 L (80-100) fl MCH 22.5 L (26-34) pg MCHC 31.4 L (32-36) g/dl RDW 14.0 (11.5-14.5) % Plt Count 182 (150-375) k/mm3 MPV 10.9 H (7.4-10.4) fl Immature Gran % (Auto) 0.6 H (0-0.5) % Neut % (Auto) 50.7 (45.5-73.1) % Lymph % (Auto) 40.9 (18.3-44.2) % [place] % (Auto) 5.2 (2.6-8.5) % Eos % (Auto) 1.9 (0-4.4) % Baso % (Auto) 0.7 (0.2-1.2) % Lymph # (Auto) 2.21 (0.9-3.2) K/mm3 [place] # (Auto) 0.3 (0.1-0.6) K/mm3 Eos # (Auto) 0.1 (0-0.3) K/mm3 Baso # (Auto) 0.0 (0.0-0.1) K/mm3 Abs Immat Gran (auto) 0.03 (0.00-0.031) K/mm3 Absolute Neuts (auto) 2.7 (1.3-6.7) K/mm3 Absolute Nucleated RBC 0.000 (0.0-0.012) K/mm3 Band Neutrophils % Not Reportable Nucleated RBC % 0.0 (0.0-0.2) % Platelet Estimate Adequate (Adequate) Anisocytosis 1+ Microcytosis 1+ (NORMAL) Schistocytes None seen PT 13.0 (11.1-14.7) Seconds INR 1.0 APTT 24.6 (22.3-36.8) Seconds Sodium 137 (137-145) mmol/L Potassium 3.7 (3.4-5.0) mmol/L Chloride 107 (98-107) mmol/L Carbon Dioxide 24 (22-30) mmol/L Anion Gap 6 (4-12) mmol/L BUN 8 (7-17) mg/dL Creatinine 0.70 (0.7-1.0) mg/dL Estim Creat Clear Calc 107 ml/min Estimated GFR > 60 (59 - ) Glucose 102 (65-110) mg/dL Calcium 9.3 (8.4-10.2) mg/dL Total Bilirubin 0.3 (0.2-1.3) mg/dL AST 24 (14-36) U/L ALT 20 (6-35) U/L Alkaline Phosphatase 56 (38-126) U/L Troponin I < 0.012 (0.000-0.034) ng/mL Total Protein 7.4 (6.3-8.2) g/dL Albumin 4.0 (3.5-5.1) g/dL Lipase 79 (23-300) U/L Influenza A (RT-PCR) Negative (Negative) Influenza B (RT-PCR) Negative (Negative) RSV (RT-PCR) Negative (Negative) SARS-CoV-2 RNA (RT-PCR) Negative (Negative) Imaging Data Attestation: I personally reviewed and interpreted this imaging study as follows: (I reviewed the radiologist's interpretations) Radiologist's impression: Impressions Chest X-Ray 02/18/25 19:09 IMPRESSION: 1. No acute cardiopulmonary disease. ECG Data EKG #1: Attestation: I personally reviewed and interpreted this ECG as follows: ECG completion date: 02/18/25 ECG completion time: 18:53 Interpretation: Normal sinus rhythm rate of 98 on normal axis, normal intervals, no acute ST or T-wave changes Discharge Plan Discharge Clinical Impression: Pleurisy, Acute viral syndrome Patient Disposition: Home Condition: Stable Instructions: Antibiotic Form, Pleurisy (ED) Additional Instructions: You were seen in the ED today for chest pain. Your labs, chest x-ray, EKG are all reassuring and are not indicative of cardiac injury at this time. You may take Tylenol and ibuprofen for your pain. Follow-up with the PCP in the next week for re-evaluation. Return the ED for any new or worsening symptoms. For pain, discomfort or temperature greater than or equal to 100.8 ?F please alternate the following 2 medications as needed. First medication- acetaminophen/Tylenol- 1000mg every 6-8 hours as needed for above indications. Second medication- ibuprofen/Motrin-600mg every 6-8 hours as needed for above indication. Patient Language: Guatemalan Prescriptions: No Action triamcinolone acetonide 0.1 % cream 1 applic topical TID Qty: 30 0RF Nexplanon 68 mg implant 1 implant subdermal ONCE Qty: 1 0RF Follow-up/Referrals: PHYSICIAN,[facility] [Primary Care Provider, Internal Medicine] Stand Alone Forms: Work/School Release IP
[2025-02-18] MEDS: ASPIRIN 81 MG CHEWABLE TABLET 324 MG PO (19:54)
[2025-02-18] MEDS: KETOROLAC 30 MG/ML VIAL (*BKC) IV PUSH (19:54)
[2025-02-18 19:55] LABS: Hematocrit 38.2 % (37.0-47.0); Hemoglobin 12.0 g/dL (12.0-15.0); Immature Granulocyte Percent A 0.6 % (0-0.5); Lymphocytes Absolute Auto 2.21 K/mm3 (0.9-3.2); Mean Corpuscular HGB Conc 31.4 g/dl (32-36); Mean Corpuscular Hemoglobin 22.5 pg (26-34); Mean Corpuscular Volume 71.5 fl (80-100); Nucleated Red Blood Cells Absolute Auto 0.000 K/mm3 (0.0-0.012); Nucleated Red Blood Cells Perc 0.0 % (0.0-0.2); Platelet Count Result 182 k/mm3 (150-375); Red Blood Count 5.34 M/mm3 (4.2-5.4); White Blood Count 5.4 K/mm3 (4.5-10.0)
[2025-02-18 20:05] LABS: Alanine Aminotransferase 20 U/L (6-35); Albumin Level 4.0 g/dL (3.5-5.1); Alkaline Phosphatase 56 U/L (38-126); Anion Gap 6 mmol/L (4-12); Aspartate Amino Transferase 24 U/L (14-36); Bilirubin,Total 0.3 mg/dL (0.2-1.3); Blood Urea Nitrogen 8 mg/dL (7-17); Calcium 9.3 mg/dL (8.4-10.2); Carbon Dioxide 24 mmol/L (22-30); Chloride 107 mmol/L (98-107); Estimated CRCL calculation 107 ml/min; Estimated Glomerular Filt Rate > 60; Glucose 102 mg/dL (65-110); Lipase 79 U/L (23-300); Potassium 3.7 mmol/L (3.4-5.0); Sodium 137 mmol/L (137-145); Total Protein 7.4 g/dL (6.3-8.2)
[2025-02-18 20:08] LABS: INR 1.0; Prothrombin Time 13.0 Seconds (11.1-14.7)
[2025-02-18 20:09] LABS: Partial Thromboplastin Time 24.6 Seconds (22.3-36.8)
[2025-02-18 20:16] LABS: Troponin I < 0.012 ng/mL (0.000-0.034)
[2025-02-18 20:31] LABS: Anisocytosis 1+; Microcytosis 1+ (NORMAL); Schistocytes None Seen
[2025-02-18 20:40] LABS: Influenza A QL RT-PCR Negative (Negative); Influenza B QL RT-PCR Negative (Negative); RSV RNA, RT-PCR Negative (Negative); SARS-CoV-2 RNA PCR Negative (Negative)
== END 2025-02-18 21:27 | disposition home or self-care (01) ==
PROVIDERS: Student in an Organized Health Care Education/Training Program; Emergency Provider Student in an Organized Health Care Education/Training Program
DX: R09.1 Pleurisy (principal); B34.9 Viral infection, unspecified; Z20.822 Contact with and (suspected) exposure to COVID-19
CPT/HCPCS: 36415; 71046; 80053; 83690; 84484; 85025; 85610; 85730; 87637; 93005; 96374; 99284; A9270; J1885

== ENCOUNTER 2025-06-03 22:05 | Emergency (ER) | payer SELFPAY ==
[2025-06-03 22:08] VITALS: BP 114/79; PULSE 93; RESP 16; TEMP 36.5; O2SAT 100
--- NOTE | 2025-06-03 23:53 | PC.NURSE ---
Called for blood work and UA x 2, no answer.
== END 2025-06-03 23:53 | disposition left against medical advice (07) ==
DX: R10.32 Left lower quadrant pain (principal)
CPT/HCPCS: 99199